=== PATIENT | male | born 1960 | race Caucasian/White ===

== ENCOUNTER 2021-07-08 01:54 | Inpatient (IN) | payer OTHER ==
[~2021-07-08] VITALS: Ht 180.3 cm; Wt 102.1 kg
--- NOTE | 2021-07-08 02:05 | NUR ---
PATIENT [id number]. LEFT LEG PAIN AND REDNESS X 2 WEEKS. PATIENT IS A/O X 4, RR EVEN AND UNLABORED, NO SOB NOTED. PATIENT CONNECTED TO [facility].
[2021-07-08 02:55] LABS: BASOPHILS # (AUTO) 0.1 K/uL (0.0-0.2); BASOPHILS % (AUTO) 0.4 % (0.0-2.0); EOSINOPHILS % (AUTO) 0.2 % (0.0-6.0); HEMATOCRIT 49 % (39-51); HEMOGLOBIN 16.7 g/dL (13.5-17.5); LYMPHOCYTES # (AUTO) 1.2 K/uL (0.8-4.8); LYMPHOCYTES % (AUTO) 7.4 % (20.0-44.0); MEAN CORPUSCULAR HGB CONC 34 g/dl (31.0-36.0); MEAN CORPUSCULAR VOLUME 97 fL (80-96); MONOCYTES # (AUTO) 0.8 K/uL (0.1-1.30); MONOCYTES % (AUTO) 4.8 % (2.0-12.0); NEUTROPHILS # (AUTO) 14.3 K/uL (1.8-8.9); NEUTROPHILS % (AUTO) 87.2 % (43.0-81.0); PLATELET COUNT (AUTO) 168 K/uL (150-450); RED BLOOD CELL COUNT(AUTO) 5.01 MIL/uL (4.5-6.0); WHITE BLOOD COUNT (AUTO) 16.4 K/uL (4.3-11.0)
[2021-07-08] MEDS ORDERED: VANCOMYCIN 1 GM in IV D5W 250 ML IV ONE (03:00)
[2021-07-08] MEDS ORDERED: PIPERACILLIN /TAZOBACTAM 3.375 G in IV D5W 50 ML IV ONE (03:00)
--- NOTE | 2021-07-08 03:15 | NUR ---
US AT BEDSIDE
[2021-07-08 03:16] LABS: CALCIUM, SERUM 8.9 mg/dL (8.5-10.1); POTASSIUM 4.1 mmol/L (3.5-5.1)
[2021-07-08 03:25] LABS: ALBUMIN 2.8 g/dL (3.4-5.0); BILIRUBIN,DIRECT 0.5 mg/dL (0.0-0.2); BILIRUBIN,TOTAL 1.1 mg/dL (0.2-1.0); TOTAL PROTEIN, SERUM 9.3 g/dL (6.4-8.2)
[2021-07-08] MEDS ORDERED: PIPERACILLIN /TAZOBACTAM 3.375 G VIAL IV ONE ×2 (03:34→13:43)
[2021-07-08] MEDS ORDERED: VANCOMYCIN 1 GM VIAL ONE (03:34)
--- NOTE | 2021-07-08 05:07 | NUR ---
per case resolution specialist: possible transfer to [facility]
--- NOTE | 2021-07-08 07:41 | NUR ---
THE PATIENT IS ALERT AND ORIENTED X3. DENIES PAIN AT THIS TIME. IN ROOM AIR AND DENIES SOB. RESPIRATION REGULAR AND UNLABORED. WILL CONTINUE TO MONITOR THE PATIENT.
--- NOTE | 2021-07-08 08:52 | NUR ---
PAGED EPIC FOR DOCTOR TO DOCTOR REPORT
--- NOTE | 2021-07-08 09:20 | NUR ---
RYAN BUTTERFIELD ON THE PHONE WITH DR HEARD
[2021-07-08] MEDS ORDERED: METF-440 PO (09:52)
--- NOTE | 2021-07-08 10:09 | NUR ---
BS 168, MADE SCHOOL LUNCH MANAGER SCOUT AWARE
--- NOTE | 2021-07-08 10:18 | NUR ---
PROVIDED W FOOD TRASeth
[2021-07-08] MEDS ORDERED: Z GUARD REMEDY 4 OZ OINT TP PRN (10:30)
[2021-07-08] MEDS ORDERED: DEXTROSE 50%-WATER 50 ML DISP.SYRIN IV PRN (10:30)
[2021-07-08] MEDS ORDERED: MAG HYDROX/AL HYDROX/SIMETH 30 ML UDC PO PRN (10:30)
[2021-07-08] MEDS ORDERED: MAGNESIUM HYDROXIDE 30 ML UDC PO PRN (10:30)
[2021-07-08] MEDS ORDERED: ACETAMINOPHEN 325 MG TABLET PO PRN (10:30)
--- NOTE | 2021-07-08 10:30 | NUR ---
CALLED NURSING SUP FOR M/S BED.
--- NOTE | 2021-07-08 11:58 | NUR ---
CALLED NURSING SUP FOR M/S BED. ATTEMPT NUMBER 2. WILL CALL US BACK.
--- NOTE | 2021-07-08 12:35 | NUR ---
MIDLINE NURSE PREETI INSERTED JIGAR MIDLINE #18G S/L; PATENT AND INTACT
[2021-07-08] MEDS: BLOOD SUGAR DIAGNOSTIC 1 EACH STRIP IN SCH ×3 (12:37→23:01)
--- NOTE | 2021-07-08 12:47 | NUR ---
PT TAKEN TO MRI
--- NOTE | 2021-07-08 13:32 | NUR ---
PATIENT STATED "NOT FEELING WELL DURING MRI". OFFERED NAUSEA MEDICATION, PATIENT REFUSED AND STATED HE WANTS TO REST. PER CUTTING INSPECTOR, WILL CONTINUE MRI IF NOT LATER, THEN BY TOMORROW.
--- NOTE | 2021-07-08 13:34 | NUR ---
PT RETURNED TO ER BED 12 FROM MRI VIA W/C
[2021-07-08] MEDS ORDERED: INSULIN REGULAR, HUMAN 100 UNIT/ML 10 ML VIAL ONE (13:43)
[2021-07-08] MEDS ORDERED: ENOXAPARIN SODIUM 40 MG/0.4 ML DISP.SYRIN SQ ONE (13:43)
[2021-07-08] MEDS: ENOXAPARIN SODIUM 40 MG/0.4 ML DISP.SYRIN SQ SCH (13:51)
[2021-07-08] MEDS: INSULIN REGULAR, HUMAN 100 UNIT/ML 3 ML VIAL SQ PRN ×2 (13:52→17:12)
[2021-07-08] MEDS: PIPERACILLIN /TAZOBACTAM 3.375 G in IV D5W 50 ML IV SCH ×2 (13:52→17:41)
--- NOTE | 2021-07-08 13:52 | NUR ---
CALLED TO FOLLOW UP ON BED, CURRENTLY WAITING FOR THE FLOOR TO MOVE THEIR ICU PATIENT. ONCE PATIENT IS OUT, OUR PATIENT CAN GO UPSTAIRS.
--- NOTE | 2021-07-08 14:28 | NUR ---
NURSING SUP GAVE M/S BED 314-1.
--- NOTE | 2021-07-08 14:39 | NUR ---
REPORT GIVEN TO NURSE ALI
--- NOTE | 2021-07-08 15:16 | NUR ---
PT TRANSFERRED TO [facility] VIA HOSPITAL PROTOCOL. MEDS HANDED TO TONE YANCEY. ALL BELONGINGS WITH PT
--- NOTE | 2021-07-08 15:20 | NUR ---
TOW BAR DRIVER NOTE RECEIVED PATIENT VIA GURNEY. PATIENT IS A/OX4 PATIENT IS BREATHING EVENLY AND NONLABORED ON ROOM AIR. PATIENT DOES NOT SHOW SIGNS OF DISTRESS OR PAIN NOTED. PATIENT HAS IV ACCESS R UPPER ARM MIDLINE 18 GUAGE, RAC # 18 GAUGE BOTH PATENT AND INTACT. PATIENTS SKIN NOTED WITH LEFT LEG REDNESS AND LT 2ND TOE WOUND, RT LICEA WOUND AND L HAND WOUND. PHOTOS TAKEN A PLACED IN CHART. ABDOMEN SOFT NONTENDER. PATIENT WAS ORIENTED TO THE ROOM AND HOW TO USE THE CALL LIGHT. PATIENTS BELONGINGS ACCOUNTED FOR. SAFETY MEASURES IN PLACED BED LOW LOCKED AND CALL LIGHT WITHIN REACH. WILL CONTINUE TO MONITOR.
--- NOTE | 2021-07-08 15:30 | NUR ---
RN NOTE VITALS BP 130/76, HR 76, TEMP 97.7 O2 SAT 100 RR 16
[2021-07-08] MEDS: VANCOMYCIN 1.5 GM in IV D5W 500 ML IV SCH (15:32)
[2021-07-08 16:00] VITALS: BP 126/91
--- NOTE | 2021-07-08 18:26 | NUR ---
MS RN CLOSING NOTE PATIENT IN BED. PATIENT IS A/OX4 PATIENT IS BREATHING EVENLY AND NONLABORED ON ROOM AIR. PATIENT DOES NOT SHOW SIGNS OF DISTRESS OR PAIN NOTED. PATIENT HAS IV ACCESS R UPPER ARM MIDLINE 18 GAUGE, RAC # 18 GAUGE BOTH PATENT AND INTACT. PATIENTS SKIN NOTED WITH LEFT LEG REDNESS AND LT 2ND TOE WOUND. WOUND CARE CONSULT ORDERED. ALL MEDICATIONS GIVEN ORDERED. SAFETY MEASURES IN PLACED BED LOW LOCKED AND CALL LIGHT WITHIN REACH. WILL ENDORSE TO ONCOMING SHIFT
--- NOTE | 2021-07-08 19:25 | NUR ---
MS RN OPENING NOTES RECEIVED PATIENT RESTING IN BED AND A/O X4. RESPIRATORY EVEN AND UNLABORED NO SOB NOTED, NO S/S OF DISTRESS NOTED. ON ROOM AIR. WITH IV ACCESS AT RIGHT UPPER ARM MIDLINE LINE, SALINE LOCKED, INTACT AND PATENT. SAFETY MEASURES IN PLACED. CALL LIGHT WITHIN REACH. BED ALARM ON. BED IN LOWEST AND LOCKED POSITION. HOB ELEVATED. WILL CONTINUE TO MONITOR.
[2021-07-08 20:00] VITALS: BP 122/94
[2021-07-09] MEDS: PIPERACILLIN /TAZOBACTAM 3.375 G in IV D5W 50 ML IV SCH ×4 (00:22→18:07)
--- NOTE | 2021-07-09 02:30 | NUR ---
RN NOTES PATIENT NOTED WITH PULLED OUT RIGHT FOREARM PERIPHERAL LINE, NO BLEEDING NOTED, DENIES PAIN.
[2021-07-09] MEDS ORDERED: VANCOMYCIN 1 GM VIAL ONE (03:51)
[2021-07-09] MEDS ORDERED: VANCOMYCIN 500 MG VIAL ONE (04:09)
[2021-07-09] MEDS: VANCOMYCIN 1.5 GM in IV D5W 500 ML IV SCH ×2 (04:44→15:00)
--- NOTE | 2021-07-09 05:10 | NUR ---
RN NOTES PATIENT NOTED WITH DISLODGE IV LINE ON RAC, UNABLE TO REINSERT PATIENT IS HARD STICK, ANOTHER RN TRIED TO REINSERT, STILL UNABLE TO REINSERT. MD MADE AWARE WAITING FOR CALL BACK FOR MIDLINE INSERTION. VANCO 1.5MG NOT FINISHED, 0600 ZOSYN DOSE ALSO UNABLE TO ADMINISTER. ENDORSED TO NEXT SHIFT.
[2021-07-09 07:04] LABS: BASOPHILS # (AUTO) 0.1 K/uL (0.0-0.2); BASOPHILS % (AUTO) 0.5 % (0.0-2.0); HEMATOCRIT 46 % (39-51); LYMPHOCYTES # (AUTO) 1.5 K/uL (0.8-4.8); LYMPHOCYTES % (AUTO) 12.9 % (20.0-44.0); MEAN CORPUSCULAR HGB CONC 35 g/dl (31.0-36.0); MEAN CORPUSCULAR VOLUME 96 fL (80-96); MONOCYTES # (AUTO) 0.8 K/uL (0.1-1.30); NEUTROPHILS # (AUTO) 8.9 K/uL (1.8-8.9); NEUTROPHILS % (AUTO) 78.6 % (43.0-81.0); PLATELET COUNT (AUTO) 182 K/uL (150-450); RED BLOOD CELL COUNT(AUTO) 4.77 MIL/uL (4.5-6.0); WHITE BLOOD COUNT (AUTO) 11.4 K/uL (4.3-11.0)
--- NOTE | 2021-07-09 07:08 | NUR ---
MS RN OPENING NOTE RECEIVED PATIENT IN BED. PATIENT IS A/OX4 PATIENT IS BREATHING EVENLY AND NONLABORED ON ROOM AIR. PATIENT DOES NOT SHOW SIGNS OF DISTRESS OR PAIN NOTED. PATIENT HAS NO IV ACCESS REMOVED, AWAITING MIDLINE. PATIENTS SKIN NOTED WITH LEFT LEG REDNESS AND LT 2ND TOE WOUND. WOUND CARE CONSULT ORDERED. IV MEDICATIONS WILL BE GIVEN ONCE IV ACCESS IS AVAILABLE. SAFETY MEASURES IN PLACED BED LOW LOCKED AND CALL LIGHT WITHIN REACH. WILL CONTINUE TO MONITOR
--- NOTE | 2021-07-09 07:30 | NUR ---
RN NOTE PATIENT REFUSED INSULIN COVERAGE, BS 148 WILL CONTINUE TO MONITOR
--- NOTE | 2021-07-09 07:44 | NUR ---
RN CLOSING NOTES PATIENT REMAIN STABLE THROUGH OUT THE SHIFT. RESTING IN BED AND A/O X4. RESPIRATORY EVEN AND UNLABORED NO SOB NOTED, NO S/S OF DISTRESS NOTED. ON ROOM AIR. . SAFETY MEASURES IN PLACED. CALL LIGHT WITHIN REACH. BED ALARM ON. BED IN LOWEST AND LOCKED POSITION. HOB ELEVATED. WILL CONTINUE TO MONITOR
[2021-07-09] MEDS: BLOOD SUGAR DIAGNOSTIC 1 EACH STRIP IN SCH ×4 (07:47→21:20)
[2021-07-09 08:00] VITALS: BP 99/66
[2021-07-09] MEDS: PANTOPRAZOLE 40 MG TABLET.DR PO SCH (08:14)
[2021-07-09 09:02] LABS: ALBUMIN 2.4 g/dL (3.4-5.0); BILIRUBIN,TOTAL 0.8 mg/dL (0.2-1.0); CALCIUM, SERUM 8.4 mg/dL (8.5-10.1); CREATININE 0.9 mg/dL (0.6-1.3); PHOSPHORUS 3.4 mg/dL (2.5-4.9); TOTAL PROTEIN, SERUM 8.6 g/dL (6.4-8.2)
--- NOTE | 2021-07-09 09:23 | NUR ---
WOUND CARE CONSULT: PT RESTING AT THIS TIME. PT FOLLOWED BY DPM FOR LOWER EXTREMITY WOUNDS/ISSUES WHICH WERE PRESENT ON ADMISSION. DEFER TO PODIATRY FOR WOUND TREATMENT PLAN. WILL SEE PRN.
[2021-07-09] MEDS: ENOXAPARIN SODIUM 40 MG/0.4 ML DISP.SYRIN SQ SCH (10:42)
[2021-07-09] MEDS: INSULIN REGULAR, HUMAN 100 UNIT/ML 3 ML VIAL SQ PRN ×3 (11:51→21:27)
--- NOTE | 2021-07-09 12:24 | NUR ---
RN NOTE PATIENT DOES NOT HAVE IV ACCESS UNABLE TO GIVE IV ATB MD AWARE, CHARGE AWARE WILL CONTINUE TO MONITOR
[2021-07-09 16:00] VITALS: BP 112/74
--- NOTE | 2021-07-09 17:07 | NUR ---
RN NOTE RECEIVED POSITIVE MRSA OF NARES, GAVE NEW ORDER FOR BACTROBAN
--- NOTE | 2021-07-09 18:21 | NUR ---
RN NOTE VANCOMYCIN DUE @ 1500 UNABLE TO GIVE UNTIL TROUGH RESULTS ARE IN, UNABLE TO DUE TO MACHINE BEING DOWN, PHARMACY MADE AWARE, STATED TO GIVE ONCE TROUGH IS BACK WILL ENDORSE TO ONCOMING SHIFT'
--- NOTE | 2021-07-09 18:32 | NUR ---
MS RN CLOSING NOTE PATIENT IN BED. PATIENT IS A/OX4 PATIENT IS BREATHING EVENLY AND NONLABORED ON ROOM AIR. PATIENT DOES NOT SHOW SIGNS OF DISTRESS OR PAIN NOTED. PATIENT HAS IV ACCESS R UPPER ARM MIDLINE 18 GAUGE, RAC # 18 GAUGE BOTH PATENT AND INTACT. PATIENTS SKIN NOTED WITH LEFT LEG REDNESS AND LT 2ND TOE WOUND. WOUND CARE CONSULT ORDERED. ALL MEDICATIONS GIVEN ORDERED. [facility] CAME BACK PHARMACY STATED TO HOLD THE 1500 AND THEY WOULD ADJUST DOSAGE. SAFETY MEASURES IN PLACED BED LOW LOCKED AND CALL LIGHT WITHIN REACH. WILL ENDORSE TO ONCOMING SHIFT
[2021-07-09] MEDS: VANCOMYCIN 1.25 GM in IV D5W 250 ML IV SCH (20:12)
[2021-07-09] MEDS: MUPIROCIN OINT 2% 22 GM TUBE NS SCH (20:14)
[2021-07-09 20:52] VITALS: BP 115/80
[2021-07-10] MEDS: PIPERACILLIN /TAZOBACTAM 3.375 G in IV D5W 50 ML IV SCH ×4 (00:04→18:12)
--- NOTE | 2021-07-10 04:18 | NUR ---
closing notes: in bed beginning of this shift assisted to the bedside commode moderate assist had a good bm assisted back to be. unsteady on his legs, bed alarm used for his safety good about using the urinal left leg deep pink in color (celulitis DX) ATB on going
[2021-07-10] MEDS: VANCOMYCIN 1.25 GM in IV D5W 250 ML IV SCH ×3 (04:41→21:34)
[2021-07-10] MEDS: IV NS 0.9% 1,000 ML IV PRN (04:43)
[2021-07-10] MEDS: ONDANSETRON HCL/PF 4 MG/2 ML VIAL IVP PRN ×2 (06:07→14:45)
[2021-07-10] MEDS: BLOOD SUGAR DIAGNOSTIC 1 EACH STRIP IN SCH ×4 (06:12→21:34)
[2021-07-10] MEDS: INSULIN REGULAR, HUMAN 100 UNIT/ML 3 ML VIAL SQ PRN ×3 (06:16→22:02)
[2021-07-10 06:48] LABS: BASOPHILS # (AUTO) 0.1 K/uL (0.0-0.2); BASOPHILS % (AUTO) 0.5 % (0.0-2.0); EOSINOPHILS % (AUTO) 1.8 % (0.0-6.0); HEMATOCRIT 45 % (39-51); HEMOGLOBIN 15.5 g/dL (13.5-17.5); LYMPHOCYTES # (AUTO) 1.8 K/uL (0.8-4.8); LYMPHOCYTES % (AUTO) 18.2 % (20.0-44.0); MEAN CORPUSCULAR HGB CONC 35 g/dl (31.0-36.0); MEAN CORPUSCULAR VOLUME 96 fL (80-96); MONOCYTES # (AUTO) 0.9 K/uL (0.1-1.30); MONOCYTES % (AUTO) 8.9 % (2.0-12.0); NEUTROPHILS # (AUTO) 7.2 K/uL (1.8-8.9); NEUTROPHILS % (AUTO) 70.6 % (43.0-81.0); PLATELET COUNT (AUTO) 223 K/uL (150-450); RED BLOOD CELL COUNT(AUTO) 4.66 MIL/uL (4.5-6.0); WHITE BLOOD COUNT (AUTO) 10.2 K/uL (4.3-11.0)
[2021-07-10 07:37] LABS: CALCIUM, SERUM 8.6 mg/dL (8.5-10.1); CREATININE 0.9 mg/dL (0.6-1.3); PHOSPHORUS 3.6 mg/dL (2.5-4.9); POTASSIUM 3.8 mmol/L (3.5-5.1)
--- NOTE | 2021-07-10 07:57 | NUR ---
RN OPENING NOTES PATIENT AWAKE IN BED RESTING, AWAKE. A/O X4. NO S/S OF PAIN NOTED AT THIS TIME. ON ROOM AIR, NO DISTRESS OR SHORTNESS OF BREATH NOTED. IV RIGHT ARM #20G, INTACT AND PATENT. FALL AND SAFETY MEASURES IN PLACE, BED ALARM ON, BED IN LOW AND LOCK POSITION, CALL LIGHT AND TABLE WITHIN EASY REACH, SIDE RAILS UP X2. WILL CONTINUE TO MONITOR.
[2021-07-10 08:34] VITALS: BP 114/79
[2021-07-10] MEDS: MUPIROCIN OINT 2% 22 GM TUBE NS SCH ×2 (09:32→21:34)
[2021-07-10] MEDS: PANTOPRAZOLE 40 MG TABLET.DR PO SCH (09:32)
[2021-07-10] MEDS: ENOXAPARIN SODIUM 40 MG/0.4 ML DISP.SYRIN SQ SCH (09:33)
[2021-07-10 16:16] VITALS: BP 131/72
--- NOTE | 2021-07-10 19:30 | NUR ---
RN CLOSING NOTES PATIENT AWAKE IN BED RESTING, AWAKE. A/O X4. NO S/S OF PAIN NOTED AT THIS TIME. ON ROOM AIR, NO DISTRESS OR SHORTNESS OF BREATH NOTED. IV RIGHT ARM #20G, INTACT AND PATENT. FALL AND SAFETY MEASURES IN PLACE, BED ALARM ON, BED IN LOW AND LOCK POSITION, CALL LIGHT AND TABLE WITHIN EASY REACH, SIDE RAILS UP X2. WILL ENDORSE TO ALTERATIONS WORKROOM CLERK.
[2021-07-10 20:00] VITALS: BP 118/79
--- NOTE | 2021-07-10 23:00 | NUR ---
MS RN NOTES: DURING ROUNDING PATIENT VERBALIZED THAT HE WAS HAVING PAIN TO HIS JIGAR IV (INFUSING VANCOMYCIN). ON ASSESSMENT SITE IS NOTABLY SWOLLEN WITH 2" ERYTHEMA SURROUNDING INSERTION SITE. IV STOPPED AND LINE DISCONTINUED, CATHETER TIP INTACT. WARM WASH CLOTH APPLIED TO AREA. ATTEMPTED TO START A NEW PERIPHERAL ACCESS X3 WITHOUT SUCCESS. NOTIFIED VP CARDIOVASCULAR SERVICE LINE WHO ALSO ATTEMPTED WITHOUT SUCCESS. NOTIFIED STATE EPIDEMIOLOGIST, NEW IV START PENDING.
--- NOTE | 2021-07-11 00:49 | NUR ---
MS RN NOTE: UNABLE TO ADMINISTER ZOSYN PER ORDER D/T NO IV ACCESS AT THIS TIME DESPITE 3 RN ATTEMPTS. NOTIFIED PROVIDER MICHAEL. NEW ORDER OBTAINED FOR PICC LINE INSERTION.
[2021-07-11] MEDS: PIPERACILLIN /TAZOBACTAM 3.375 G in IV D5W 50 ML IV SCH ×5 (02:00→18:00)
--- NOTE | 2021-07-11 02:00 | NUR ---
MS RN NOTES: ACCESSED PERIPHERAL IV TO L FA 22 GAUGE. ZOSYN INFUSION STARTED.
[2021-07-11] MEDS: VANCOMYCIN 1.25 GM in IV D5W 250 ML IV SCH (05:00)
--- NOTE | 2021-07-11 05:35 | NUR ---
MS YANCEY NOTES: 0500 VANCOMYCIN DOSE HELD D/T TROUGH LEVEL >20
[2021-07-11] MEDS: BLOOD SUGAR DIAGNOSTIC 1 EACH STRIP IN SCH ×4 (06:48→23:28)
[2021-07-11] MEDS: PANTOPRAZOLE 40 MG TABLET.DR PO SCH (06:48)
--- NOTE | 2021-07-11 07:11 | NUR ---
MS RN CLOSING NOTE: PATIENT IN BED, EYES CLOSED, RR EVEN AND UNLABORED; NAD AND VSS AT THIS TIME. LLE CONTINUES WITH REDNESS AND WARM TO TOUCH. PATIENT'S MENTATION TO BASELINE, COMMUNICATIVE AND COOPERATIVE WITH CARE. BED IN LOW AND LOCKED POSITION.
[2021-07-11 07:31] LABS: BASOPHILS # (AUTO) 0.1 K/uL (0.0-0.2); BASOPHILS % (AUTO) 0.7 % (0.0-2.0); EOSINOPHILS % (AUTO) 1.5 % (0.0-6.0); HEMATOCRIT 46 % (39-51); HEMOGLOBIN 15.7 g/dL (13.5-17.5); LYMPHOCYTES % (AUTO) 17.5 % (20.0-44.0); MEAN CORPUSCULAR HGB CONC 34 g/dl (31.0-36.0); MEAN CORPUSCULAR VOLUME 96 fL (80-96); MONOCYTES # (AUTO) 1.2 K/uL (0.1-1.30); MONOCYTES % (AUTO) 10.1 % (2.0-12.0); NEUTROPHILS # (AUTO) 8.2 K/uL (1.8-8.9); NEUTROPHILS % (AUTO) 70.2 % (43.0-81.0); PLATELET COUNT (AUTO) 228 K/uL (150-450); RED BLOOD CELL COUNT(AUTO) 4.81 MIL/uL (4.5-6.0); WHITE BLOOD COUNT (AUTO) 11.6 K/uL (4.3-11.0)
[2021-07-11 07:34] LABS: CALCIUM, SERUM 8.8 mg/dL (8.5-10.1); CREATININE 0.9 mg/dL (0.6-1.3); POTASSIUM 3.9 mmol/L (3.5-5.1)
[2021-07-11 07:50] LABS: PHOSPHORUS 4.3 mg/dL (2.5-4.9)
--- NOTE | 2021-07-11 07:59 | NUR ---
RN OPENING NOTES PATIENT AWAKE IN BED RESTING, AWAKE. A/O X4. NO S/S OF PAIN NOTED AT THIS TIME. ON ROOM AIR, NO DISTRESS OR SHORTNESS OF BREATH NOTED. IV LFA #22G, INTACT AND PATENT. FALL AND SAFETY MEASURES IN PLACE, BED ALARM ON, BED IN LOW AND LOCK POSITION, CALL LIGHT AND TABLE WITHIN EASY REACH, SIDE RAILS UP X2. WILL CONTINUE TO MONITOR.
[2021-07-11 08:00] VITALS: BP 102/80
[2021-07-11] MEDS: MUPIROCIN OINT 2% 22 GM TUBE NS SCH ×2 (08:12→23:09)
[2021-07-11] MEDS: ENOXAPARIN SODIUM 40 MG/0.4 ML DISP.SYRIN SQ SCH (09:58)
[2021-07-11] MEDS: INSULIN REGULAR, HUMAN 100 UNIT/ML 3 ML VIAL SQ PRN ×3 (11:55→23:31)
[2021-07-11] MEDS ORDERED: VANCOMYCIN 1 GM in IV D5W 250 ML IV SCH (13:00)
--- NOTE | 2021-07-11 13:25 | NUR ---
RN NOTES VANCOMYCIN WAS NOT GIVEN DUE TO VANCOMYCIN TROUGH LEVEL OF 23.
[2021-07-11] MEDS ORDERED: KETOROLAC TROMETHAMINE INJ 30 MG/ML VIAL IV PRN (13:30)
[2021-07-11 16:00] VITALS: BP 122/76
[2021-07-11] MEDS: IV NS 0.9% 1,000 ML IV PRN (16:49)
--- NOTE | 2021-07-11 19:00 | NUR ---
RN NOTES PATIENT REMOVED IV LFA #22G. TRIED MULTIPLE TIMES TO REINSERT A NEW IV BUT WAS UNSUCCESSFUL. PATIENT IS A HARD STICK. PICC LINE WAS ORDERED BUT PER CHARGE NURSE PICC LINE MIGHT NOT BE AVAILABLE UNTIL TUESDAY. PATIENT TAZOBACTAM WAS NOT ADMINISTERED DUE TO NO IV ACCESS.
--- NOTE | 2021-07-11 19:25 | NUR ---
MS RN OPENING NOTES RECEIVED PATIENT LAYING AWAKE IN BED. A/O X4. PATIENT WITH REGULAR AND UNLABORED BREATHING ON ROOM AIR TOLERATED WELL. NO SIGNS AND SYMPTOMS OF DISTRESS NOTED. NO COMPLAINS OF PAIN OR DISCOMFORT AT THIS TIME. NO IV ACCESS AT THIS TIME AWAITING PICC LINE INSERTION WILL NOT BE ABLE TO ADMINISTER IV MEDICATIONS. SAFETY PRECAUTIONS ENFORCED WITH BED LOCKED AND AT LOWEST POSITION. SIDERAILS UP X 2. CALL LIGHT WITHIN REACH AT ALL TIMES. WILL CONTINUE TO MONITOR PATIENT.
--- NOTE | 2021-07-11 19:56 | NUR ---
RN CLOSING NOTES PATIENT AWAKE IN BED RESTING, AWAKE. A/O X4. NO S/S OF PAIN NOTED AT THIS TIME. ON ROOM AIR, NO DISTRESS OR SHORTNESS OF BREATH NOTED. NO IV ACCESS PATIENT REMOVED IV, PATIENT IS A HARD STICK, PICC LINE WAS ORDERED. FALL AND SAFETY MEASURES IN PLACE, BED ALARM ON, BED IN LOW AND LOCK POSITION, CALL LIGHT AND TABLE WITHIN EASY REACH, SIDE RAILS UP X2. WILL ENDORSE TO DENTAL MANAGER..
[2021-07-11 20:00] VITALS: BP 106/75
[2021-07-12 04:07] LABS: BASOPHILS # (AUTO) 0.1 K/uL (0.0-0.2); BASOPHILS % (AUTO) 0.6 % (0.0-2.0); EOSINOPHILS % (AUTO) 1.5 % (0.0-6.0); HEMATOCRIT 48 % (39-51); HEMOGLOBIN 16.4 g/dL (13.5-17.5); LYMPHOCYTES # (AUTO) 2.3 K/uL (0.8-4.8); LYMPHOCYTES % (AUTO) 18.5 % (20.0-44.0); MEAN CORPUSCULAR HGB CONC 34 g/dl (31.0-36.0); MEAN CORPUSCULAR VOLUME 96 fL (80-96); MONOCYTES # (AUTO) 0.9 K/uL (0.1-1.30); MONOCYTES % (AUTO) 7.2 % (2.0-12.0); NEUTROPHILS % (AUTO) 72.2 % (43.0-81.0); PLATELET COUNT (AUTO) 257 K/uL (150-450); RED BLOOD CELL COUNT(AUTO) 5.01 MIL/uL (4.5-6.0); WHITE BLOOD COUNT (AUTO) 12.5 K/uL (4.3-11.0)
[2021-07-12 04:25] LABS: CALCIUM, SERUM 8.6 mg/dL (8.5-10.1); CREATININE 0.8 mg/dL (0.6-1.3)
[2021-07-12] MEDS: BLOOD SUGAR DIAGNOSTIC 1 EACH STRIP IN SCH ×4 (07:30→21:28)
--- NOTE | 2021-07-12 07:42 | NUR ---
RN OPENING NOTES PATIENT AWAKE IN BED RESTING, AWAKE. A/O X4. NO S/S OF PAIN NOTED AT THIS TIME. ON ROOM AIR, NO DISTRESS OR SHORTNESS OF BREATH NOTED. NO IV ACCESS PATIENT REMOVED IV. FALL AND SAFETY MEASURES IN PLACE, BED ALARM ON, BED IN LOW AND LOCK POSITION, CALL LIGHT AND TABLE WITHIN EASY REACH, SIDE RAILS UP X2. WILL CONTINUE TO MONITOR.
--- NOTE | 2021-07-12 07:53 | NUR ---
MS RN CLOSING NOTES PATIENT STILL LAYING AWAKE IN BED. A/O X4. PATIENT WITH REGULAR AND UNLABORED BREATHING ON ROOM AIR TOLERATED WELL. NO SIGNS AND SYMPTOMS OF DISTRESS NOTED. NO COMPLAINS OF PAIN OR DISCOMFORT AT THIS TIME. NO IV ACCESS AT THIS TIME AWAITING PICC LINE INSERTION WAS NOT ABLE TO ADMINISTER IV MEDICATIONS. SAFETY PRECAUTIONS ENFORCED WITH BED LOCKED AND AT LOWEST POSITION. SIDERAILS UP X 2. CALL LIGHT WITHIN REACH AT ALL TIMES. WILL ENDORSE POLLY TO DAY SHIFT NURSE.
[2021-07-12 08:00] VITALS: BP 118/75
[2021-07-12] MEDS: ENOXAPARIN SODIUM 40 MG/0.4 ML DISP.SYRIN SQ SCH (10:28)
[2021-07-12] MEDS: PANTOPRAZOLE 40 MG TABLET.DR PO SCH (10:28)
--- NOTE | 2021-07-12 11:00 | NUR ---
RN NOTE PATIENT DOES NOT HAVE IV ACCESS, PICC LINE WAS ORDERED BUT PER NURSING TERMINAL GAUGER THERE IS NO PICC LINE OR MIDLINE NURSE AVAILABLE. UNKNOWN WHEN PATIENT IS GOING TO GET PICC LINE. DOCTOR WAS NOTIFIED TO SEE IF IV MEDS CAN BE CHANGED TO PO. WAITING FOR DOCTOR RESPONSE. PATIENT HAVEN'T RECEIVE HIS IV MEDICATIONS.
--- NOTE | 2021-07-12 14:40 | NUR ---
peripheral iv lines inserted by Er nurse and documented, pharmacy informed to adjust vancomycin iv time to administer medication now.
[2021-07-12] MEDS: MUPIROCIN OINT 2% 22 GM TUBE NS SCH ×2 (15:12→21:27)
[2021-07-12] MEDS: PIPERACILLIN /TAZOBACTAM 3.375 G in IV D5W 50 ML IV SCH ×2 (15:14→23:00)
[2021-07-12 16:00] VITALS: BP 93/68
[2021-07-12] MEDS: VANCOMYCIN 1 GM in IV D5W 250 ML IV SCH ×2 (16:38→23:47)
[2021-07-12] MEDS: GLUCERNA SHAKE 237 ML CAN PO SCH (18:17)
[2021-07-12] MEDS: INSULIN REGULAR, HUMAN 100 UNIT/ML 3 ML VIAL SQ PRN ×2 (18:52→21:39)
--- NOTE | 2021-07-12 19:36 | NUR ---
RN CLOSING NOTES PATIENT AWAKE IN BED RESTING, AWAKE. A/O X4. NO S/S OF PAIN NOTED AT THIS TIME. ON ROOM AIR, NO DISTRESS OR SHORTNESS OF BREATH NOTED. NO IV ACCESS PATIENT REMOVED IV. FALL AND SAFETY MEASURES IN PLACE, BED ALARM ON, BED IN LOW AND LOCK POSITION, CALL LIGHT AND TABLE WITHIN EASY REACH, SIDE RAILS UP X2. WILL ENDORSE TO HEAD WOOD GRINDER.
[2021-07-12 20:00] VITALS: BP 106/76
--- NOTE | 2021-07-12 20:00 | NUR ---
RECEIVED PATIENT IN BED, ALERT/ORIENTED X4, ROOM AIR, NO COMPLAIN OF PAIN, LEFT LEG CELLULITIS, REDNESS, SKIN INTACT, URINAL, INFUSING VANCOMYCIN IV, WILL CONTINUE TO MONITOR.
[2021-07-13] MEDS: PIPERACILLIN /TAZOBACTAM 3.375 G in IV D5W 50 ML IV SCH ×4 (05:02→23:37)
[2021-07-13] MEDS: BLOOD SUGAR DIAGNOSTIC 1 EACH STRIP IN SCH ×4 (06:37→21:40)
[2021-07-13] MEDS: INSULIN REGULAR, HUMAN 100 UNIT/ML 3 ML VIAL SQ PRN ×4 (06:39→22:14)
--- NOTE | 2021-07-13 07:00 | NUR ---
ALERT/ORIENTED X4, STABLE ON ROOM AIR, NO COMPLAIN OF PAIN, COOPERATIVE WITH CARE, GIVEN VANCOMYCIN AND ZOSYN BACK TO BACK, ACCUCHECK, SLIDING SCALE, LEFT LEG SWELLING WITH REDNESS, SKIN INTACT, FOR PODIATRY CONSULT WITH DR. CUNNINGHAM, MRI IF PATIENT AGREES.
--- NOTE | 2021-07-13 07:12 | NUR ---
MS RN OPENING NOTES RECEIVED PATIENT LAYING AWAKE IN BED. A/O X4. PATIENT WITH REGULAR AND UNLABORED BREATHING ON ROOM AIR TOLERATED WELL. NO SIGNS AND SYMPTOMS OF DISTRESS NOTED. NO COMPLAINS OF PAIN OR DISCOMFORT AT THIS TIME. IV ACCESS NOTED TO L HAND # 22 AND R WRIST # 20 SAFETY PRECAUTIONS ENFORCED WITH BED LOCKED AND AT LOWEST POSITION. SIDERAILS UP X 2. CALL LIGHT WITHIN REACH AT ALL TIMES. WILL CONTINUE TO MONITOR
[2021-07-13] MEDS: GLUCERNA SHAKE 237 ML CAN PO SCH ×3 (07:47→17:36)
[2021-07-13] MEDS: VANCOMYCIN 1 GM in IV D5W 250 ML IV SCH ×3 (07:47→15:56)
[2021-07-13] MEDS: PANTOPRAZOLE 40 MG TABLET.DR PO SCH (07:47)
[2021-07-13 08:00] VITALS: BP 104/69
[2021-07-13] MEDS: MUPIROCIN OINT 2% 22 GM TUBE NS SCH ×2 (08:23→21:06)
[2021-07-13 08:45] LABS: MAGNESIUM 2.2 mg/dL (1.8-2.4); PHOSPHORUS 3.8 mg/dL (2.5-4.9)
[2021-07-13 09:01] LABS: BASOPHILS # (AUTO) 0.1 K/uL (0.0-0.2); BASOPHILS % (AUTO) 1.1 % (0.0-2.0); EOSINOPHILS % (AUTO) 2.2 % (0.0-6.0); HEMATOCRIT 46 % (39-51); HEMOGLOBIN 15.6 g/dL (13.5-17.5); LYMPHOCYTES # (AUTO) 2.6 K/uL (0.8-4.8); LYMPHOCYTES % (AUTO) 21.8 % (20.0-44.0); MEAN CORPUSCULAR HGB CONC 34 g/dl (31.0-36.0); MEAN CORPUSCULAR VOLUME 97 fL (80-96); MONOCYTES # (AUTO) 1.1 K/uL (0.1-1.30); MONOCYTES % (AUTO) 9.2 % (2.0-12.0); NEUTROPHILS # (AUTO) 7.8 K/uL (1.8-8.9); NEUTROPHILS % (AUTO) 65.7 % (43.0-81.0); RED BLOOD CELL COUNT(AUTO) 4.79 MIL/uL (4.5-6.0); WHITE BLOOD COUNT (AUTO) 11.8 K/uL (4.3-11.0)
[2021-07-13] MEDS: ENOXAPARIN SODIUM 40 MG/0.4 ML DISP.SYRIN SQ SCH (09:44)
[2021-07-13 10:47] LABS: PLATELET COUNT (AUTO) 240 K/uL (150-450)
[2021-07-13 10:48] LABS: THYROID STIMULATING HORMONE 3.126 uIU/mL (0.358-3.74); URIC ACID 3.5 mg/dL (2.6-7.2)
--- NOTE | 2021-07-13 14:34 | NUR ---
RN NOTE PATIENT STATED HE IS ON ROUTINE METHADONE 110MG. CLINIC IS [facility] [address], SPOKE TO ADARSH WHO CONFIRMED [facility], STATED THEY WERE CLOSING AND WOULD NOT BE ABLE TO SEND THE FAX BACK TILL TOMORROW, FAX #[phone] NOTIFIED.
[2021-07-13 16:00] VITALS: BP 112/79
[2021-07-13] MEDS ORDERED: METH10TA2 PO (16:01)
[2021-07-13] MEDS: HYDROCODONE/APAP 5/325MG TABLET PO PRN (16:41)
--- NOTE | 2021-07-13 18:23 | NUR ---
MS RN CLOSING NOTES PATIENT LAYING AWAKE IN BED. A/O X4. PATIENT WITH REGULAR AND UNLABORED BREATHING ON ROOM AIR TOLERATED WELL. NO SIGNS AND SYMPTOMS OF DISTRESS NOTED. NO COMPLAINS OF PAIN OR DISCOMFORT AT THIS TIME. IV ACCESS NOTED TO L HAND # 22 AND R WRIST # 20 PATENT AND INTACT. ALL MEDICATIONS GIVEN ORDERED. SAFETY PRECAUTIONS ENFORCED WITH BED LOCKED AND AT LOWEST POSITION. SIDERAILS UP X 2. CALL LIGHT WITHIN REACH AT ALL TIMES. WILL ENDORSE TO ONCOMING SHIFT.
--- NOTE | 2021-07-13 19:30 | NUR ---
MS RN OPENING NOTES RECEIVED PT LAYING AWAKE IN BED. A/O X4. PT STABLE ON ROOM AIR. NO SOB OR S/S OF RESPIRATORY DISTRESS NOTED. NO COMPLAINS OF PAIN OR DISCOMFORT AT THIS TIME. IV ACCESS L HAND 22 GAUGE AND R WRIST 20 GAUGE, PATENT AND INTACT. SAFETY PRECAUTIONS MAINTAINED BED LOCKED AND AT LOWEST POSITION. SIDE RAILS UP X 2, CALL LIGHT AND TABLE WITHIN REACH. WILL CONTINUE WITH PLAN OF CARE.
[2021-07-13 20:00] VITALS: BP 104/72
[2021-07-13] MEDS: INSULIN GLARGINE, 100 UNIT/ML CARTRIDGE SQ SCH (21:50)
[2021-07-14] MEDS: VANCOMYCIN 1 GM in IV D5W 250 ML IV SCH ×2 (00:15→07:58)
[2021-07-14] MEDS: HYDROCODONE/APAP 5/325MG TABLET PO PRN ×2 (00:45→22:21)
[2021-07-14] MEDS: PIPERACILLIN /TAZOBACTAM 3.375 G in IV D5W 50 ML IV SCH ×4 (05:03→23:19)
[2021-07-14] MEDS: BLOOD SUGAR DIAGNOSTIC 1 EACH STRIP IN SCH ×4 (06:45→21:40)
[2021-07-14] MEDS: INSULIN REGULAR, HUMAN 100 UNIT/ML 3 ML VIAL SQ PRN ×4 (06:46→21:44)
--- NOTE | 2021-07-14 07:01 | NUR ---
MS RN CLOSING NOTES PT LAYING AWAKE IN BED. A/O X4. PT STABLE ON ROOM AIR. NO SOB OR S/S OF RESPIRATORY DISTRESS NOTED. NO COMPLAINS OF PAIN OR DISCOMFORT AT THIS TIME. IV ACCESS L HAND 22 GAUGE AND R HAND 22 GAUGE, PATENT AND INTACT. ALL NEEDS MET AT THIS TIME. SAFETY PRECAUTIONS MAINTAINED AT ALL TIMES. BED LOCKED AND AT LOWEST POSITION. SIDE RAILS UP X 2, CALL LIGHT AND TABLE WITHIN REACH. WILL ENDORSE TO ONCOMING NURSE FOR POLLY.
--- NOTE | 2021-07-14 07:01 | NUR ---
MS RN OPENING NOTES RECEIVED PATIENT LAYING AWAKE IN BED. A/O X4. PATIENT WITH REGULAR AND UNLABORED BREATHING ON ROOM AIR TOLERATED WELL. NO SIGNS AND SYMPTOMS OF DISTRESS NOTED. NO COMPLAINS OF PAIN OR DISCOMFORT AT THIS TIME. IV ACCESS NOTED TO L HAND # 22 AND R HAND # 20 SAFETY PRECAUTIONS ENFORCED WITH BED LOCKED AND AT LOWEST POSITION. SIDERAILS UP X 2. CALL LIGHT WITHIN REACH AT ALL TIMES. WILL CONTINUE TO MONITOR
[2021-07-14] MEDS: PANTOPRAZOLE 40 MG TABLET.DR PO SCH (07:58)
[2021-07-14 08:00] VITALS: BP 110/80
[2021-07-14] MEDS: GLUCERNA SHAKE 237 ML CAN PO SCH ×3 (08:00→17:09)
[2021-07-14] MEDS: MUPIROCIN OINT 2% 22 GM TUBE NS SCH ×2 (08:19→20:05)
[2021-07-14 08:36] LABS: CALCIUM, SERUM 8.9 mg/dL (8.5-10.1); POTASSIUM 4.2 mmol/L (3.5-5.1)
[2021-07-14] MEDS: METHADONE HCL 10 MG TABLET PO SCH (08:59)
[2021-07-14] MEDS: ENOXAPARIN SODIUM 40 MG/0.4 ML DISP.SYRIN SQ SCH (09:40)
--- NOTE | 2021-07-14 10:05 | NUR ---
SS consult requested for possible Homelessness. SW will follow up at a later time.
--- NOTE | 2021-07-14 12:28 | NUR ---
"SS Consult: SS Consult requested for homelessness & Drug abuse. The pt. is a 61-year-old male patient who was admitted for Cellulitis. Upon SS consult, the pt. is A&O x 4 and makes piercing eye contact. The pt. appears well-groomed and presents with an dysphoric mood and affect. The pt. cooperative with SW. Pt. has slurred speech and missing teeth. Pt. Pt. denies current SI/HI and denies hallucinations. ZAHRA explored pt.s living situation. Per the pt., he has been experiencing homelessness two years. Pt. states he has no support system. ZAHRA explored pt.s drug & ETOH use. Pt. denies drug or alcohol use. ZAHRA explored pt.s mental health Hx. Pt. denies any Hx. with mental health issues. Pt. states he receives food stamps. Per pt. he is ambulatory & independent with all his ADLs. Plan: Pt. signed homeless waiver & it was placed in the pt.s chart. SW provided homeless resources to pt. and he accepted them. Pt. is agreeable to detention placement. ZAHRA provided bus route to [facility] who accept walk ins at 4:30pm. ZAHRA discussed DC plan with pt.s nurse. Year-round shelters: [facility] [address] [place] [place] [address] ; [facility] [address] [place] [address]; [place] [facility] [id number] [facility] [address] Winter Shelters: SPA 2 | [facility] Mashavider: [facility] Address: Confidential (call for location ) Population Served: Coed # of Beds: 57 SPA 4 | [facility] Provider: [facility] Address: [address] [place] [address], [address] # of Beds: 49 Population Served: Coed SPA 6 | [facility] Provider: [facility] Address: [address] [id number] # of Beds: 49 Population Served: Coed Hakeem Olmos [facility] Custodial Provider: Sally Olmos TXD Address: [address] [facility] [address] # of Beds: 20 Population Served: Women [place] Facility Provider: [facility] Address: [address] [facility] [address] # of Beds: 30 Population Served: Women SPA 8 | [facility] Provider: Naty of Mikayla Address: [address] [facility] [address] # of Beds: 65 Population Served: Coed Hygiene: [facility]: [address] [place] ; [facility] [address] [facility] ; [facility] [address] [place] . Food Resources: [facility] at [facility]- [address] [facility]; Meet Each Need with Dignity ([facility]) [address] [facility] [place]; [facility] Food [facility]ry [address] [facility]; [facility] [address] [facility] Er. Mental Health resources provided: [facility] [address] [place], [place] [phone] ; [facility] [address] [facility] [address], [place] [address] ; Sonya Roy [facility] [address] [address], [place] [phone] ; [facility] [address] [place], [place] [phone] Healthcare Clinics: [facility] [address] [facility], [address] [place]. [place] ; [facility] [address] [facility] [address] [place] [address]; [facility] [place] [address] [facility] [place] [address] [phone] Counseling--Outpatient [facility] [address], [place] [address] (Specializes in in-depth psychotherapy for emotional distress: anxiety, depression, interpersonal conflicts, life transitions, childhood abuse) [facility] [address] [place] [address] (Assist with solving problem marital difficulties, separation & divorce, aging parents, & grief, chronic & terminal illness) [facility] [address] [place] [address] (Deal with loss & grief, anxiety, marital difficulties) Homebound/Mental Health Services [address] [facility] [address] [place] [address] (Provide in-home mental services to people who are incapable of leaving their homes) [facility] for Needs of the Elderly Senior Service/Resource Center [address] [place] [address] [facility] [address] [place] [address] PSYCHIATRIC OUTPATIENT SERVICES [facility] Partial Hospitalization and Intensive Outpatient Program (Managed Care and [place] Only)[address] [facility] [phone] [facility] Partial Hospitalization and Outpatient [id number] [facility] [address] [place], [place] [phone] [facility] Mental Health [place] [id number] [facility] [address] [place], [place] [phone] [facility] Partial Hospitalization and Outpatient [id number] [place], [phone] Substance Abuse resources provided included: [facility] Substance Abuse Self-Helpline (SAS) ; [facility] [address] [facility]. [place] [phone] ; [facility] [address] [facility] [address] ; [facility] Rehabilitation Program [address] [place] [phone] ; [facility] [address] [facility] [address] ; [facility] [address] [facility] [address] ; [facility] [address] [phone] ; [facility] Substance Abuse Helpline(SAS)[facility] ; [facility] ; [facility]; [facility]; [facility] [place]; [facility] [place] [facility] [address] Powers; [facility] [place]; [facility] [place]; [facility] [place]; [facility] [place]; Alcoholics Anonymous -SFV; [place] ; Marijuana Anonymous -SFV; Narcotics Anonymous www.na.org;"
[2021-07-14 16:00] VITALS: BP 90/70
[2021-07-14] MEDS: IV NS 0.9% 1,000 ML IV PRN (17:09)
--- NOTE | 2021-07-14 19:40 | NUR ---
MS RN OPENING NOTES RECEIVED PT LAYING AWAKE IN BED. A/O X4. PT STABLE ON ROOM AIR. NO SOB OR S/S OF RESPIRATORY DISTRESS NOTED. NO COMPLAINS OF PAIN OR DISCOMFORT AT THIS TIME. IV ACCESS L HAND 22 GAUGE AND R HAND 22 GAUGE, PATENT AND INTACT. SAFETY PRECAUTIONS MAINTAINED BED LOCKED AND AT LOWEST POSITION. SIDE RAILS UP X 2, CALL LIGHT AND TABLE WITHIN REACH. WILL CONTINUE WITH PLAN OF CARE.
[2021-07-14 20:00] VITALS: BP 102/70
[2021-07-14] MEDS: VANCOMYCIN 1 GM in IV D5W 250ml IV SCH (20:06)
[2021-07-14] MEDS: INSULIN GLARGINE, 100 UNIT/ML CARTRIDGE SQ SCH (21:45)
--- NOTE | 2021-07-14 22:21 | NUR ---
RN NOTE PT COMPLAINED OF PAIN 8/10 IN LOWER LEFT CALF. ADMINISTERED NORCO 5-325 FOR PAIN ORDERED. VSS. WILL CONTINUE TO MONITOR.
[2021-07-15] MEDS: PIPERACILLIN /TAZOBACTAM 3.375 G in IV D5W 50 ML IV SCH ×4 (05:07→23:56)
[2021-07-15] MEDS: BLOOD SUGAR DIAGNOSTIC 1 EACH STRIP IN SCH ×4 (06:34→21:33)
[2021-07-15] MEDS: INSULIN REGULAR, HUMAN 100 UNIT/ML 3 ML VIAL SQ PRN ×4 (06:41→21:37)
[2021-07-15 07:28] LABS: CALCIUM, SERUM 8.8 mg/dL (8.5-10.1); CREATININE 1.1 mg/dL (0.6-1.3); POTASSIUM 4.6 mmol/L (3.5-5.1)
--- NOTE | 2021-07-15 07:30 | NUR ---
MS RN OPENING NOTES RECEIVED PT AWAKE IN BED. A/O X4. ON ROOM AIR, TOLERATING WELL. NO SOB OR S/S OF RESPIRATORY DISTRESS NOTED. NO COMPLAINS OF PAIN OR DISCOMFORT AT THIS TIME. IV ACCESS L HAND 22 GAUGE AND R HAND 22 GAUGE, PATENT AND INTACT. SAFETY PRECAUTIONS IN PLACE, BED LOCKED AND AT LOWEST POSITION. SIDE RAILS UP X 2, CALL LIGHT AND TABLE WITHIN REACH. WILL CONTINUE TO MONITOR.
[2021-07-15] MEDS: PANTOPRAZOLE 40 MG TABLET.DR PO SCH (08:07)
[2021-07-15] MEDS: GLUCERNA SHAKE 237 ML CAN PO SCH ×3 (08:07→17:52)
[2021-07-15] MEDS: METHADONE HCL 10 MG TABLET PO SCH (08:08)
[2021-07-15] MEDS: MUPIROCIN OINT 2% 22 GM TUBE NS SCH ×2 (08:10→21:40)
[2021-07-15 08:14] VITALS: BP 101/64
[2021-07-15] MEDS: VANCOMYCIN 1 GM in IV D5W 250ml IV SCH ×2 (08:21→21:38)
[2021-07-15] MEDS: ENOXAPARIN SODIUM 40 MG/0.4 ML DISP.SYRIN SQ SCH (10:07)
--- NOTE | 2021-07-15 12:44 | NUR ---
RN NOTES PATIENT PICKED UP FOR MRI LEFT LEG/FOOT.
--- NOTE | 2021-07-15 15:45 | NUR ---
RN NOTES PATIENT BACK FROM MRI OF LEFT LOWER EXT AND LEFT FOOT.
[2021-07-15 16:08] VITALS: BP 97/53
[2021-07-15] MEDS: HYDROCODONE/APAP 5/325MG TABLET PO PRN (16:46)
--- NOTE | 2021-07-15 18:41 | NUR ---
MS RN CLOSING NOTES PATIENT AWAKE IN BED. A/O X4. REMAINS ON ROOM AIR, TOLERATING WELL. NO SOB OR S/S OF RESPIRATORY DISTRESS NOTED. NO COMPLAINS OF PAIN OR DISCOMFORT AT THIS TIME. ALL DUE MEDS GIVEN, TOLERATED WELL. IV ACCESS JIGAR MIDLINE PATENT AND INTACT, NS @75ML/HR RUNNING. SAFETY PRECAUTIONS IN PLACE, BED LOCKED AND AT LOWEST POSITION. SIDE RAILS UP X 2, CALL LIGHT AND TABLE WITHIN REACH. WILL ENDORSE TO NEXT SHIFT.
[2021-07-15 20:00] VITALS: BP 106/72
[2021-07-15] MEDS: INSULIN GLARGINE, 100 UNIT/ML CARTRIDGE SQ SCH (21:38)
[2021-07-16] MEDS: HYDROCODONE/APAP 5/325MG TABLET PO PRN ×2 (01:01→15:42)
[2021-07-16] MEDS: PIPERACILLIN /TAZOBACTAM 3.375 G in IV D5W 50 ML IV SCH ×3 (05:46→17:41)
[2021-07-16 06:39] LABS: CALCIUM, SERUM 8.8 mg/dL (8.5-10.1); POTASSIUM 4.3 mmol/L (3.5-5.1)
[2021-07-16] MEDS: BLOOD SUGAR DIAGNOSTIC 1 EACH STRIP IN SCH ×4 (07:03→21:37)
--- NOTE | 2021-07-16 07:03 | NUR ---
blood sugar checked= 111, no insulin coverage needed.
--- NOTE | 2021-07-16 07:37 | NUR ---
RN OPENING NOTES Patient seen comfortably lying in bed, no SOB, no apparent distress noted, breathing even and unlabored, denies any pain or discomfort at this time, no grimacing. Call light left within reach, safety precautions in place, brakes locked, side rails up X 2, will monitor closely for any changes.
[2021-07-16 08:00] VITALS: BP 91/61
[2021-07-16] MEDS: PANTOPRAZOLE 40 MG TABLET.DR PO SCH (08:27)
[2021-07-16] MEDS: VANCOMYCIN 1 GM in IV D5W 250ml IV SCH ×2 (08:27→21:24)
[2021-07-16] MEDS: METHADONE HCL 10 MG TABLET PO SCH (08:28)
[2021-07-16] MEDS: GLUCERNA SHAKE 237 ML CAN PO SCH ×3 (08:28→17:48)
[2021-07-16] MEDS: MUPIROCIN OINT 2% 22 GM TUBE NS SCH (08:35)
[2021-07-16] MEDS: ENOXAPARIN SODIUM 40 MG/0.4 ML DISP.SYRIN SQ SCH (10:16)
[2021-07-16] MEDS: INSULIN REGULAR, HUMAN 100 UNIT/ML 3 ML VIAL SQ PRN ×3 (11:27→21:41)
--- NOTE | 2021-07-16 15:00 | NUR ---
Patient c/o some discomfort near his right upper arm midline site, per patient that is where his old peripheral IV line was and it was removed 3 days ago, per patient he feels like something was left there and is hurting when site is palpated, no unusual or foreign object was felt upon palpation of the site. Right upper arm midline site was noted with no redness, no swelling, skin warm to touch, midline flushing well with all lumens noted with good blood return, hospitalist made aware of the situation with new orders to do a venous and arterial doppler ultrasound of right upper arm, orders noted and carried out and patient made aware of the situation verbalized understanding and gratitude.
--- NOTE | 2021-07-16 15:51 | NUR ---
Patient has an order for amputation of left foot third toe, consent for the procedure obtained from patient, verbalized understanding of the procedure, reminded patient that he cannot have any food or water after midnight, verbalized understanding and gratitude. Consents signed by patient and are filed in patients chart.
[2021-07-16 16:00] VITALS: BP 102/66
--- NOTE | 2021-07-16 18:40 | NUR ---
Patient lying in bed, no apparent distress noted, no SOB, breathing even and unlabored, no dizziness, no palpitations, all medications given per MD order, tolerating well. Pain medications given per MD order as needed when non pharmacological measures ineffective. IV ATB given per MD order, tolerating well, no adverse effects noted at this time. No s/s of hypo or hyperglycemia, no tremors, no change in level of consciousness, insulin given per sliding scale as needed per MD order. All needs attended, kept clean and dry, safety precautions in place, brakes locked, side rails up X 2, call light left within reach, will endorse to next shift for continuity of care.
--- NOTE | 2021-07-16 19:15 | NUR ---
MS RN OPENING NOTE RECEIVED PT IN BED, AWAKE AND RESTING. PT IS A/O X4. STABLE ON ROOM AIR. NO SOB OR RESPIRATORY DISTRESS NOTED, NO C/O PAIN AT THIS TIME. RESPIRATIONS EVEN AND UNLABORED. IV ACCESS NOTED IN RIGHT UPPER ARM MIDLINE G# 18. IV IS INTACT, PATENT, AND FLUSHING WELL. FALL AND SAFETY MEASURES IN PLACE AND MAINTAINED AT ALL TIMES. BED ALARM ON, BED IN LOW AND LOCKED POSITION, HOB ELEVATED TO SEMI FOWLERS POSITION, CALL LIGHT AND TABLE WITHIN REACH. SIDE RAILS UP X2. WILL CONTINUE WITH PLAN OF CARE.
[2021-07-16 20:00] VITALS: BP 101/64
[2021-07-16] MEDS: INSULIN GLARGINE, 100 UNIT/ML CARTRIDGE SQ SCH (21:40)
[2021-07-17] MEDS: PIPERACILLIN /TAZOBACTAM 3.375 G in IV D5W 50 ML IV SCH ×4 (00:37→17:31)
[2021-07-17 06:00] LABS: BASOPHILS # (AUTO) 0.1 K/uL (0.0-0.2); BASOPHILS % (AUTO) 1.3 % (0.0-2.0); EOSINOPHILS % (AUTO) 3.9 % (0.0-6.0); HEMATOCRIT 38 % (39-51); HEMOGLOBIN 13.2 g/dL (13.5-17.5); LYMPHOCYTES # (AUTO) 1.8 K/uL (0.8-4.8); LYMPHOCYTES % (AUTO) 26.5 % (20.0-44.0); MEAN CORPUSCULAR HGB CONC 34 g/dl (31.0-36.0); MEAN CORPUSCULAR VOLUME 97 fL (80-96); MONOCYTES # (AUTO) 0.7 K/uL (0.1-1.30); MONOCYTES % (AUTO) 9.4 % (2.0-12.0); NEUTROPHILS # (AUTO) 4.1 K/uL (1.8-8.9); NEUTROPHILS % (AUTO) 58.9 % (43.0-81.0); PLATELET COUNT (AUTO) 225 K/uL (150-450); RED BLOOD CELL COUNT(AUTO) 3.95 MIL/uL (4.5-6.0); WHITE BLOOD COUNT (AUTO) 6.9 K/uL (4.3-11.0)
[2021-07-17] MEDS: BLOOD SUGAR DIAGNOSTIC 1 EACH STRIP IN SCH ×4 (06:00→22:15)
[2021-07-17] MEDS: INSULIN REGULAR, HUMAN 100 UNIT/ML 3 ML VIAL SQ PRN ×2 (06:04→17:44)
--- NOTE | 2021-07-17 06:30 | NUR ---
MS RN CLOSING NOTE PT IS IN BED RESTING, EASY TO AROUSE. A/O X4. STABLE N ROOM AIR. NO SOB, NO S/S OF RESPIRATORY DISTRESS. PT HAS BEEN NPO SINCE MIDNIGHT, AWAITING PROCEDURE.PT IS AMBULATORY. IV ACCESS IS INTACT, PATENT, AND FLUSHING WELL. ALL NEEDS HAVE BEEN MET. ALL CARE, NEEDS, MEDICATIONS, AND TREATMENT ADMINISTERED ANTICIPATED PER ORDER.SAFETY, SEIZURE, AND ASPIRATION PRECAUTIONS MAINTAINED AT ALL TIMES. BED IN LOWEST, LOCKD POSITION. HOB ELEVATED, SIDE RAILS UP X2. CALL LIGHT AND TABLE WITHIN REACH. WILL ENDORSE TO ONCOMING NURSE FOR POLLY.
[2021-07-17 07:08] LABS: CALCIUM, SERUM 8.1 mg/dL (8.5-10.1); MAGNESIUM 2.2 mg/dL (1.8-2.4); PHOSPHORUS 3.8 mg/dL (2.5-4.9); POTASSIUM 4.2 mmol/L (3.5-5.1)
--- NOTE | 2021-07-17 07:32 | NUR ---
RN OPENING NOTES Patient seen comfortably lying in bed, no apparent distress noted, no SOB, respirations even and unlabored, denies any pain or discomfort at this time, no grimacing. Call light left within reach, safety precautions in place, brakes locked, side rails up X 2, will monitor closely for any changes.
[2021-07-17] MEDS: GLUCERNA SHAKE 237 ML CAN PO SCH ×3 (08:00→17:49)
[2021-07-17 08:18] VITALS: BP 98/70
[2021-07-17] MEDS: VANCOMYCIN 1 GM in IV D5W 250ml IV SCH ×2 (09:08→21:46)
[2021-07-17] MEDS ORDERED: ANESTHESIA TRAY IN PYXIS 1 EA TRAY MC ONE (09:09)
[2021-07-17] MEDS ORDERED: BUPIVACAINE 0.5 % PF 150 MG/30 ML VIAL ONE (09:10)
[2021-07-17] MEDS ORDERED: LIDOCAINE 1% INJ 50 ML MDV IJ ONE (09:10)
[2021-07-17] MEDS ORDERED: BUPIVACAINE MPF W/EPI 0.25% 30 ML VIAL ONE (09:10)
--- NOTE | 2021-07-17 10:16 | NUR ---
Patient left for surgery around 10:15am, remained NPO since after midnight, denies any abdominal pain, no apparent distress notes, no s/s of hypo/hyperglycemia, no change in level of consciousness, no tremors, denies any pain or discomfort, consents and checklist present in patients chart.
[2021-07-17] MEDS: ENOXAPARIN SODIUM 40 MG/0.4 ML DISP.SYRIN SQ SCH (10:30)
--- NOTE | 2021-07-17 12:15 | NUR ---
PATIENT CAME BACK FROM SURGERY AROUND 12NN, STABLE CONDITION, NO APPARENT DISTRESS NOTED, DENIES ANY PAIN OR DISCOMFORT, NO SOB, AFEBRILE, NO RESPIRATORY DISTRESS. PATIENT CAME BACK WITH NEW ORDERS FROM DR. CUNNINGHAM FOLLOWS: 1. RESTART ORDERS, 2. PLEASE DISCONTINUE NPO, 3. KEEP DRESSING ON LEFT FOOT CLEAN, DRY AND INTACT. MAY, REINFORCE DRESSING NEEDED. 4. PLEASE DISPENSE SURGICAL SHOE FOR LEFT FOOT, SURGICAL SHOE ORDERED FROM [facility] WILL FOLLOW UP, 5. PLEASE ELEVATE LEFT FOOT, ORDERS NOTED AND CARRIED OUT.
[2021-07-17] MEDS: PANTOPRAZOLE 40 MG TABLET.DR PO SCH (13:04)
[2021-07-17] MEDS: METHADONE HCL 10 MG TABLET PO SCH (13:05)
[2021-07-17 15:45] VITALS: BP 105/60
--- NOTE | 2021-07-17 18:15 | NUR ---
RN CLOSING NOTES Patient lying in bed, no SOB, respirations even and unlabored, no apparent distress noted, all medications given per MD order, tolerating well. S/P left foot third toe amputation today, site covered with dry dressing, remained clean, dry and intact during shift, no blood noted in the dressing, no unusual odor, no unusual discharge. No s/s of hypo or hyperglycemia, no tremors, no change in level of consciousness, insulin given per sliding scale as needed per MD order. Kept clean and dry, all needs attended, call light left within reach, safety precautions in place, brakes locked, side rails up X 2, will endorse to next shift for continuity of care.
[2021-07-17 20:00] VITALS: BP 104/58
--- NOTE | 2021-07-17 21:30 | NUR ---
CONFIRMED WITH THE PHARMACY TO GIVE VANCOMYCIN TO PT. ORDER VERIFIED AND CARRIED OUT. WILL CONTINUE WITH PLAN OF CARE
[2021-07-17] MEDS: HYDROCODONE/APAP 5/325MG TABLET PO PRN (21:48)
--- NOTE | 2021-07-17 21:48 | NUR ---
PT C/O PAIN ON HIS LEFT FOOT, PER PT REQUEST NORCO 5-325MG 1 TAB PO Q 8HR PRN ADMINISTERED AT THIS TIME PER ORDER. WILL CONTINUE TO MONITOR.
[2021-07-17] MEDS: INSULIN GLARGINE, 100 UNIT/ML CARTRIDGE SQ SCH (22:19)
[2021-07-18] MEDS: PIPERACILLIN /TAZOBACTAM 3.375 G in IV D5W 50 ML IV SCH ×4 (00:28→17:54)
[2021-07-18] MEDS: BLOOD SUGAR DIAGNOSTIC 1 EACH STRIP IN SCH ×3 (06:03→17:53)
[2021-07-18] MEDS: INSULIN REGULAR, HUMAN 100 UNIT/ML 3 ML VIAL SQ PRN (06:04)
--- NOTE | 2021-07-18 06:30 | NUR ---
MS RN CLOSING NOTE PT IS IN BED RESTING, EASY TO AROUSE. A/O X4. STABLE N ROOM AIR. NO SOB, NO S/S OF RESPIRATORY DISTRESS. PT IS AMBULATORY WITH WALKER. IV ACCESS IS INTACT, PATENT, AND FLUSHING WELL. ALL NEEDS HAVE BEEN MET. ALL CARE, NEEDS, MEDICATIONS, AND TREATMENT ADMINISTERED ANTICIPATED PER ORDER.SAFETY, SEIZURE, AND ASPIRATION PRECAUTIONS MAINTAINED AT ALL TIMES. BED IN LOWEST, LOCKED POSITION. HOB ELEVATED, SIDE RAILS UP X2. CALL LIGHT AND TABLE WITHIN REACH. WILL ENDORSE TO ONCOMING NURSE FOR POLLY.
[2021-07-18 08:00] VITALS: BP 106/67
--- NOTE | 2021-07-18 08:00 | NUR ---
ms rn received on bed,awake,alert,oriented x4,not in any form of distress, respirations even and unlabored,no sob noted, s/p left foot 3rd toe amputation w/ dressing dry and intact. will monitor patient's condition.
--- NOTE | 2021-07-18 09:30 | NUR ---
ms hansen breakfast served,due meds given,tolerated well.
[2021-07-18] MEDS: PANTOPRAZOLE 40 MG TABLET.DR PO SCH (09:36)
[2021-07-18] MEDS: METHADONE HCL 10 MG TABLET PO SCH (09:37)
[2021-07-18] MEDS: VANCOMYCIN 1 GM in IV D5W 250ml IV SCH (09:38)
[2021-07-18] MEDS: GLUCERNA SHAKE 237 ML CAN PO SCH ×3 (09:39→17:53)
[2021-07-18] MEDS: ENOXAPARIN SODIUM 40 MG/0.4 ML DISP.SYRIN SQ SCH (11:03)
[2021-07-18] MEDS: HYDROCODONE/APAP 5/325MG TABLET PO PRN (11:44)
--- NOTE | 2021-07-18 12:30 | NUR ---
ms rn was seen by anastasiia robison w/ order to go home today, wants to speak w/ bilingual patient support caseworker.
[2021-07-18 16:00] VITALS: BP 96/78
--- NOTE | 2021-07-18 16:04 | NUR ---
ms rn spoke w/ cm, patient will go home home today.
--- NOTE | 2021-07-18 17:30 | NUR ---
MS RN OPENING NOTE RECEIVED PT IN BED, AWAKE AND RESTING. PT IS A/O X4. STABLE ON ROOM AIR. NO SOB OR RESPIRATORY DISTRESS NOTED, NO C/O PAIN AT THIS TIME. RESPIRATIONS EVEN AND UNLABORED. IV ACCESS NOTED IN RIGHT UPPER ARM MIDLINE G# 18. IV IS INTACT, PATENT, AND FLUSHING WELL. FALL AND SAFETY MEASURES IN PLACE AND MAINTAINED AT ALL TIMES. BED ALARM ON, BED IN LOW AND LOCKED POSITION, HOB ELEVATED TO SEMI FOWLERS POSITION, CALL LIGHT AND TABLE WITHIN REACH. SIDE RAILS UP X2. WILL CONTINUE WITH PLAN OF CARE. Addendum: 07/18/21 at 2209 by ADOLPH BRYANT RN TIME 0 NOT 1730
--- NOTE | 2021-07-18 18:56 | NUR ---
ms rn ready to be discharge, waiting for his ride.
[2021-07-18 20:00] VITALS: BP 116/77
--- NOTE | 2021-07-18 22:00 | NUR ---
MS DAIRY TRUCK DRIVER NOTE PT DISCHARGED TO HOME WITH ORDER FOR HOME HEALTH AT THIS TIME. PT IS MEDICALLY STABLE AND CLEARED FOR DISCHARGE. ALL PT CARE, NEEDS, MEDICATIONS, AND TREATMENTS ADMINISTERED ANTICIPATED PER ORDER. DISCHARGE INSTRUCTIONS PROVIDED TO PT. PT VERBALIZED UNDERSTANDING. PT KEPT CLEAN AND DRY. BELONGINGS LIST ACCOUNTED FOR AND SIGNED BY PT. IV ACCESS REMOVED. PRESSURE APPLIED AND SECURED WITH GAUZE AND TAPE. NO SIGNS OF BLEEDING NOTED. ID BAND REMOVED. PT TRANSPORTED TO ER WAITING ROOM BY AND JERE FREEMAN. CHARGE NURSE GERONIMO AND MD MUNIZ.
== END 2021-07-18 22:00 | disposition home health service (06) | DRG 710 ==
LOC: ER 01:56 → TRANSITION 12:14 → MED 14:36
PROVIDERS: ADMIT Hospitalist
PROC: 05H933Z Insertion of Infusion Device into Right Brachial Vein, Percutaneous Approach (ICD-10-PCS; principal; 2021-07-08)
PROC: 0Y6U0Z0 Detachment at Left 3rd Toe, Complete, Open Approach (ICD-10-PCS; 2021-07-17)
DX: A41.9 Sepsis, unspecified organism (principal); E44.0 Moderate protein-calorie malnutrition; E11.40 Type 2 diabetes mellitus with diabetic neuropathy, unspecified; E11.621 Type 2 diabetes mellitus with foot ulcer; E87.1 Hypo-osmolality and hyponatremia; M86.172 Other acute osteomyelitis, left ankle and foot; L97.529 Non-pressure chronic ulcer of other part of left foot with unspecified severity; L03.116 Cellulitis of left lower limb; E11.69 Type 2 diabetes mellitus with other specified complication; Z20.822 Contact with and (suspected) exposure to COVID-19; Z88.2 Allergy status to sulfonamides; Z59.00 Homelessness unspecified; F19.11 Other psychoactive substance abuse, in remission; E86.1 Hypovolemia; E11.65 Type 2 diabetes mellitus with hyperglycemia; Z72.0 Tobacco use; M19.90 Unspecified osteoarthritis, unspecified site; M20.10 Hallux valgus (acquired), unspecified foot; Z83.3 Family history of diabetes mellitus
CPT/HCPCS: 36415; 73590-TC; 73720-TC; 80048-TC; 80053-TC; 80061-TC; 80076-TC; 80202-TC; 82962-TC; 83605-TC; 83735-TC; 84100-TC; 84443-TC; 84550-TC; 85025-TC; 85730-TC; 87040-TC; 87070-TC; 87081-TC; 87186-TC; 88305-TC; 88311-TC; 93930-TC; 93971-TC; C9803; G0378; J1650; J1815; J1885; J2405; J2543; J2704; J3370; J3490; J7030; J7060